=== PATIENT | female | born 1945 | race Hispanic/Latino ===

== ENCOUNTER 2017-10-01 14:04 | Emergency (ER) | payer MEDICARE, OTHER ==
[~2017-10-01] VITALS: Ht 154.9 cm; Wt 58.5 kg
[~2017-10-01 14:04] MED LIST: ASPIR-LOW81 MG PO; BENTYL10 MG PO; DIOVAN160 MG PO; LEVSIN0.125 MG PO; ZETIA10 MG PO
[2017-10-01] MEDS ORDERED: TRAMADOL HCL 50 MG TAB PO ONE (16:00)
--- NOTE | 2017-10-01 20:46 | Diagnostic Imaging Report ---
History:fall Comparison studies:None Technique: Axial images were obtained from the skull base to the vertex. Coronal and sagittal images reconstructed from the axial data. Intravenous contrast: None Findings: Scalp/skull: No abnormalities. Extra-axial spaces: No masses. No fluid collections. Brain sulci: Appropriate for age. Ventricles: Normal in size and configuration. No hydrocephalus. Parenchyma: Scattered hypodensities in the supratentorial white matter are small vessel ischemic changes. No masses, hemorrhage, acute or chronic cortical vascular insults. Sellar/suprasellar region: No abnormalities. Craniocervical junction: Patent foramen magnum. No Chiari one malformation. Incidental findings: Atherosclerotic calcifications in the carotid siphons . Impression: No acute abnormalities. Mild supratentorial white matter microvascular ischemic changes. A preliminary report was given by Neuroradiology fellow Dr. Matos at 5:01 PM on 10/01/2017. I reviewed the images and agree with the findings in the preliminary report. Signed by: Dr. Kirsten Nelson M.D. on 10/01/2017 8:42 PM
--- NOTE | 2017-10-01 20:53 | Diagnostic Imaging Report ---
History: Fall Comparison studies: None Technique: Axial images were obtained through the cervical region.. Coronal and sagittal images reconstructed from the axial data.. Intravenous contrast: None Findings: Airway: Patent. Fractures: None. Soft tissues: No gross abnormalities. Atlantoaxial articulation: Intact. Alignment: Reversal of normal cervical lordosis centered at C4-C5 where there is mild angulated widening of the posterior disc space. There is also mild widening of the C3-C4 disc space. Grade 1 anterolisthesis of C3 on C4 and C4 on C5. Cervicomedullary junction: No abnormalities. The foramen magnum is patent. Vertebrae: No infection or neoplasm. Degenerative changes: Severe calcific hypertrophy of the left ligamenta flava at C4 contributes to moderate canal stenosis. Moderate disc degeneration at C5-C6 with mild canal stenosis due to mild posterior disc osteophyte complex and bulky ligamenta flava calcification. Mild right foraminal stenosis at C3-C4, mild left foraminal stenosis at C4-C5 and C5-C6 due to facet and uncovertebral arthrosis. Right upper lobe irregular 6 mm pulmonary nodule for which nonemergent dedicated CT chest is recommended. IMPRESSION: 1. No acute fracture. Mild angulated widening of the posterior disc space at C4-C5 which is equivocal for an indirect sign of discoligamentous injury versus chronic degenerative change. MRI cervical spine without contrast is suggested. 2. Right upper lobe irregular 6 mm pulmonary nodule for which nonemergent dedicated CT chest is recommended. 3. Ligament, spinal cord and or vascular abnormalities cannot be excluded on the basis of this examination. Findings discussed with Dr. Lopez at 5:29 PM on 10/01/17. A preliminary report was given by neuroradiology fellow Dr. Matos and at 5:30 PM on 10/01/2017. I have reviewed the images and agree with the findings in the preliminary report. Signed by: Dr. Kirsten Nelson M.D. on 10/01/2017 8:49 PM
--- NOTE | 2017-10-01 20:56 | Diagnostic Imaging Report ---
History: Fall Comparison studies: None Technique: Axial images were obtained through the maxillofacial region. Coronal and sagittal images reconstructed from the axial data. Intravenous contrast: None Findings: Soft tissues: Mild right eccentric premandibular soft tissue contusion. Bones: No fractures or bone abnormalities. Orbits: Globes: Intact Extra or intraconal abnormalities: None. Paranasal sinuses: Previous left maxillary sinus antrostomy. Mild mucosal thickening in left maxillary sinus. No air-fluid level. IMPRESSION: 1. No acute fracture or dislocation. 2. Mild right premandibular soft tissue contusion. A preliminary report was given by neuroradiology fellow Dr. Matos and at 5:27 PM on 10/01/2017. I have reviewed the images and agree with the findings in the preliminary report. Signed by: Dr. Kirsten Nelson M.D. on 10/01/2017 8:53 PM
--- NOTE | 2017-10-01 21:19 | Diagnostic Imaging Report ---
History: Trauma, status post fall. Comparison studies: CT cervical spine from earlier the same day. Technique: Sagittal T1, T2 and IR, axial T2, T1 and axial gradient echo Intravenous contrast: None Findings: Alignment: Reversal of normal cervical lordosis centered at C4-C5 and C5-C6. No scoliosis. Unchanged 2 mm grade 1 anterolisthesis at C3-C4 and C4-C5, 2 mm grade 1 retrolisthesis at C5-C6, is likely degenerative as there is no increased T2/STIR signal within the adjacent ligaments. Cervicomedullary junction: No abnormalities. Patent foramen magnum. Soft tissues: Minimal T2/STIR hyperintensity in the interspinous ligament at level C4-C5 (image 6, series 4). Spinal cord: Normal in size and signal from the foramen magnum through T3 Vertebrae: No fractures, infection or neoplasm. Degenerative changes: C2-C3: No abnormalities. C3-C4: Mild right foraminal stenosis due to facet arthrosis. Mild degenerative disc disease. Asymmetric disc bulge towards the right effaces anterior thecal sac without significant canal stenosis. C4-C5: Mild degenerative disc disease. Posterior disc osteophyte complex in combination with thickened and calcified left paramedian aspect of ligamentum flavum results in moderate canal stenosis. Moderate left foraminal stenosis due to facet and uncovertebral arthrosis. C5-C6: Moderate degenerative disc disease with decreased T2 signal, decreased intervertebral disc space, anterior vertebral osteophyte and degenerative endplate changes. Posterior disc osteophyte complex in combination with grade 1 retrolisthesis results in mild canal stenosis. Moderate left foraminal stenosis due to facet and uncovertebral arthrosis. C6-C7: No abnormalities. C7-T1: No abnormalities. IMPRESSION: 1. Acute interspinous ligament strain/injury at level C4-C5. 2. No acute fracture. Grade 1 anterolisthesis at C3-C4, C4-C5 and grade 1 retrolisthesis at C5-C6 is likely degenerative. 3. Cervical spondylosis as detailed above extends from level C3-C4 to C5-C6, particularly results in moderate canal stenosis at C4-C5 and mild canal stenosis at C5-C6. 4. Multilevel foraminal stenosis, particularly mild right at C3-C4, moderate left at C4-C5 and C5-C6. Signed by: Dr. Kirsten Nelson M.D. on 10/01/2017 9:15 PM
[2017-10-01 22:00] VITALS: BP 193/88
== END 2017-10-01 22:06 | disposition home or self-care (01) ==
LOC: ER 14:04
DX: S06.0X0A Concussion without loss of consciousness, initial encounter (principal); W01.0XXA Fall on same level from slipping, tripping and stumbling without subsequent striking against object, initial encounter
CPT/HCPCS: 70450; 70486; 72125; 72141; 99283

== ENCOUNTER 2018-08-20 17:28 | Observation (INO) | payer MEDICARE, OTHER ==
[~2018-08-20] VITALS: Ht 154.9 cm; Wt 58.5 kg
--- OUTSIDE RECORDS SUMMARY | 2018-08-20 17:32 | XMS REPORT ---
Author [facility] Address Unknown Phone Unavailable Care Team Providers Care Commercial Pilot Name Role Phone RBISA GLEASON Unavailable Unavailable Problems This patient has no known problems. Allergies, Adverse Reactions, Alerts This patient has no known allergies or adverse reactions. Medications This patient has no known medications. Results Test Description Test Time Test Comments Text Results Atomic Results Result Comments MRI SPINE CERVICAL WO [place] [address] Patient Name: MADELEINE VILLALTA MR #: [id number] : 1945 Age/Sex: 71/F Req #: [id number] Adm Physician: Ordered by: CHARITO ANAYA SURFACE PLATE INSPECTOR Report #: [id number] Location: ER Room/Bed: Procedure: [id number] MRI/MRI SPINE CERVICAL WO Exam Date: Exam Time: REPORT STATUS: Signed History: Trauma, status post fall. Comparison studies: CT cervical spine from earlier the same day. Technique: Sagittal T1, T2 and IR, axial T2, T1 and axial gradient echo Intravenous contrast: None Findings: Alignment: Reversal of normal cervical lordosis centered at C4-C5 and C5-C6. No scoliosis. Unchanged 2 mm grade 1 anterolisthesis at C3-C4 and C4-C5, 2 mm grade 1 retrolisthesis at C5-C6, is likely degenerative as there is no increased T2/STIR signal within the adjacent ligaments. Cervicomedullary junction: No abnormalities. Patent foramen magnum. Soft tissues: Minimal T2/STIR hyperintensity in the interspinous ligament at level C4-C5 (image 6, series 4). Spinal cord: Normal in size and signal from the foramen magnum through T3 Vertebrae: No fractures, infection or neoplasm. Deg enerative changes: C2-C3: No abnormalities. C3-C4: Mild right foraminal stenosis due to facet arthrosis. Mild degenerative disc disease. Asymmetric disc bulge towards the right effaces anterior thecal sac without significant canal stenosis. C4-C5: Mild degenerative disc disease. Posterior disc osteophyte complex in combination with thickened and calcified left paramedian aspect of ligamentum flavum results in moderate canal stenosis. Moderate left foraminal stenosis due to facet and uncovertebral arthrosis. C5-C6: Moderate degenerative disc disease with decreased T2 signal, decreased intervertebral disc space, anterior vertebral osteophyte and degenerative endplate changes. Posterior disc osteophyte complex in combination with grade 1 retrolisthesis results in mild canal stenosis. Moderate left foraminal stenosis due to facet and uncovertebral arthrosis. C6-C7: No abnormalities. C7-T1: No abnormalities. IMPRESSION: 1. Acute interspinous ligament strain/injury at level C4-C5. 2. No acute fracture. Grade 1 anterolisthesis at C3-C4, C4-C5 and grade 1 retrolisthesis at C5-C6 is likely degenerative. 3. Cervical spondylosis as detailed above extends from level C3-C4 to C5-C6, particularly results in moderate canal stenosis at C4-C5 and mild canal stenosis at C5-C6. 4. Multilevel foraminal stenosis, particularly mild right at C3-C4, moderate left at C4-C5 and C5-C6. Signed by: Dr. Kirsten Nelson M.D. on 10/01/2017 9:15 PM Dictated By: KIRSTEN NELSON MD 14 Transcribed By: SILVIANO on 10/01/172114 COPY TO: CHARITO ANAYA NP CT BRAIN WO [place] [address] Patient Name: MADELEINE VILLALTA MR #: [id number] : 1945 Age/Sex: 71/F Req #: [id number] Adm Physician: Ordered by: CHARITO ANAYA SURFACE PLATE INSPECTOR Report #: [id number] Location: ER Room/Bed: Procedure: [id number] CT/CT BRAIN WO Exam Date: 10/01/17 Exam Time: 1443 REPORT STATUS: Signed History:fall Comparison studies:None Technique: Axial images were obtained from the skull base to the vertex. Coronal and sagittal images reconstructed from the axial data. Intravenous contrast: None Findings: Scalp/skull: No abnormalities. Extra-axial spaces: No masses. No fluid collections. Brain sulci: Appropriate for age. Ventricles: Normal in size and configuration. No hydrocephalus. Parenchyma: Scattered hypodensities in the supratentorial white matter are small vessel ischemic changes. No masses, hemorrhage, acute or chronic cortical vascular insults. Sellar/suprasellar region: No abnormalities. Craniocervical junction: Patent foramen magnum. No Chiari one malformation. Incidental findings: Atherosclerotic calcifications in the carotid siphons . Impression: No acute abnormalities. Mild supratentorial white matter microvascular ischemic changes. A preliminary report was given by Neuroradiology fellow Dr. Matos at 5:01 PM on 10/01/2017. I reviewed the images and agree with the findings in the preliminary report. Signed by: Dr. Kirsten Nelson M.D. on 10/01/2017 8:42 PM Dictated By: KIRSTEN NELSON MD 41 Transcribed By: SILVIANO on 10/01/172041 COPY TO: CHARITO ANAYA SURFACE PLATE INSPECTOR CT CERVICAL SPINE WO [place] [address] Patient Name: MADELEINE VILLALTA MR #: [id number] : 1945 [facility] 71[id number] Req #: [id number] Adm Physician: Ordered by: CHARITO ANAYA SURFACE PLATE INSPECTOR Report #: [id number] Location: ER Room/Bed: Procedure: [id number] CT/CT CERVICAL SPINE WO Exam Date: 10/01/17 Exam Time: 1443 REPORT STATUS: Signed History: Fall Comparison studies: None Technique: Axial images were obtained through the cervical region.. Coronal and sagittal images reconstructed from the axial data.. Intravenous contrast: None Findings: Airway: Patent. Fractures: None. Soft tissues: No gross abnormalities. Atlantoaxial articulation: Intact. Alignment: Reversal of normal cervical lordosis centered at C4-C5 where there is mild angulated widening of the posterior disc space. There is also mild widening of the C3-C4 disc space. Grade 1 anterolisthesis of C3 on C4 and C4 on C5. Cervicomedullary junction: No abnormalities. The foramen magnum is patent. Vertebrae: No infection or neoplasm. Degenerative changes: Severe calcific hypertrophy of the left ligamenta flava at C4 contributes to moderate canal stenosis. Moderate disc degeneration at C5-C6 with mild canal stenosis due to mild posterior disc osteophyte complex and bulky ligamenta flava calcification. Mild right foraminal stenosis at C3-C4, mild left foraminal stenosis at C4-C5 and C5-C6 due to facet and uncovertebral arthrosis. Right upper lobe irregular 6 mm pulmonary nodule for which nonemergent dedicated CT chest is recommended. IMPRESSION: 1. No acute fracture. Mild angulated widening of the posterior disc space at C4-C5 which is equivocal for an indirect sign of discoligamentous injury versus chronic dege nerative change. MRI cervical spine without contrast is suggested. 2. Right upper lobe irregular 6 mm pulmonary nodule for which nonemergent dedicated CT chest is recommended. 3. Ligament, spinal cord and or vascular abnormalities cannot be excluded on the basis of this examination. Findings discussed with Dr. Gleason at 5:29 PM on 10/01/17. A preliminary report was given by neuroradiology fellow Dr. Matos and at 5:30 PM on 10/01/2017. I have reviewed the images and agree with the findings in the preliminary report. Signed by: Dr. Kirsten Nelson M.D. on 10/01/2017 8:49 PM Dictated By: KIRSTEN NELSON MD 48 Transcribed By: SILVIANO on 10/01/172048 COPY TO: CHARITO ANAYA NP CT MAXIO FAC/PARANAS WO [place] [address] Patient Name: MADELEINE VILLALTA MR #: [id number] : 1945 Age/Sex: 71/F Req #: [id number] Adm Physician: Ordered by: CHARITO ANAYA SURFACE PLATE INSPECTOR Report #: [id number] Location: ER Room/Bed: Procedure: [id number] CT/CT MAXIO FAC/PARANAS WO Exam Date: 10/01/17 Exam Time: 1443 REPORT STATUS: Signed History: Fall Comparison studies: None Technique: Axial images were obtained through the maxillofacial region. Coronal and sagittal images reconstructed from the axial data. Intravenous contrast: None Findings: Soft tissues: Mild right eccentric premandibular soft tissue contusion. Bones: No fractures or bone abnormalities. Orbits: Globes: Intact Extra or intraconal abnormalities: None. Paranasal sinuses: Previous left maxillary sinus antrostomy. Mild mucosal thickening in left maxillary sinus. No air-fluid level. IMPRESSION: 1. No acute fracture or dislocation. 2. Mild right premandibular soft tissue contusion. A preliminary report was given by neuroradiology fellow Dr. Matos and at 5:27 PM on 10/01/2017. I have reviewed the images and ag ree with the findings in the preliminary report. Signed by: Dr. Kirsten Nelson M.D. on 10/01/2017 8:53 PM Dictated By: KIRSTEN NELSON MD 52 Transcribed By: SILVIANO on 10/01/172052 COPY TO: CHARITO ANAYA SURFACE PLATE INSPECTOR
--- OUTSIDE RECORDS SUMMARY | 2018-08-20 17:32 | XMS REPORT | Clinical Summary ---
Author Author [facility] Address Unknown Phone Unavailable Care Team Providers Care Profiling Machine Setup Operator Name Role Phone Asked, No Pcp PCP Unavailable Allergies Comments Active Allergy Reactions Severity Noted Date Codeine Several years ago Methylprednisolone Palpitations Low 04/06/2018 Acetate Iodine 08/15/2012 Penicillins 08/15/2012 Sulfasalazine 08/15/2012 Medications End Date Status Medication Sig Dispensed Refills Start Date Active aspirin-calcium carbonate Take 81 mg by 0 81 mg-300 mg calcium(777 mouth. mg) tablet Active irbesartan (AVAPRO) 150 0 MG tablet 8 Active ezetimibe (ZETIA) 10 mg Zetia 10 mg 0 tablet tablet Take 1 tablet every day by oral route. Active biotin 1 mg capsule Take by 0 mouth. 05/04/2018 Discontinued cyclobenzaprine Take 1 tablet 30 tablet 0 (FLEXERIL) 5 mg (5 mg total) 8 tabletIndications: by mouth 3 Primary localized (three) times osteoarthrosis of right a day as lower leg needed for muscle spasms for up to 30 days. 05/06/2018 ibuprofen (ADVIL,MOTRIN) Take 1 tablet 90 tablet 5 800 MG tabletIndications: (800 mg 8 Primary localized total) by osteoarthrosis of right mouth 3 lower leg (three) times a day for 30 days. 05/04/2018 Discontinued ibuprofen (ADVIL,MOTRIN) Take 1 tablet 45 tablet 0 800 MG tablet (800 mg 8 total) by mouth 3 (three) times a day for 30 days. 05/06/2018 cyclobenzaprine Take 1 tablet 30 tablet 0 (FLEXERIL) 5 mg tablet (5 mg total) 8 by mouth 3 (three) times a day as needed for muscle spasms for up to 30 days. Active Problems Problem Noted Date Arthritis of carpometacarpal (CMC) joint of left thumb 05/04/2018 Primary localized osteoarthrosis of right lower leg 04/06/2018 Encounters Care Team Description Date Type Specialty Anjel Jennings MD Arthritis of carpometacarpal (CMC) joint of left thumb (Primary Dx); Primary localized osteoarthrosis of right lower leg 05/04/2018 Office Visit Orthopedic Surgery Fermin Polanco MD Siff, Todd E., MD Primary localized osteoarthrosis of right lower leg (Primary Dx); Chronic pain of right knee 04/06/2018 Office Visit Orthopedic Surgery after 08/19/2017 Social History Date Tobacco Use Types Packs/Day Years Used Never Assessed Sex Assigned at Date Recorded Not on file Industry Job Start Date Occupation Not on file Not on file Not on file Travel End Travel History Travel Start No recent travel history available. Last Filed Vital Signs Not on file Plan of Treatment Health Maintenance Due Date Last Done Comments BREAST CANCER SCREENING 1996 COLON CANCER SCREENING 1996 SHINGLES VACCINES (1 of 1996 2) PNEUMOCOCCAL 12/16/2011 POLYSACCHARIDE VACCINE AGE 65 AND OVER INFLUENZA VACCINE Completed 03/22/2018, 05/21/2016 PNEUMOCOCCAL-13 Completed 03/22/2018 Procedures Comments Procedure Name Priority Date/Time Associated Diagnosis [place] ARTHROCENTESIS Routine 05/04/2018 Arthritis of ASPIR&/INJ SMALL JT/BURSA 9:00 AM CDT carpometacarpal (CMC) W/O US joint of left thumb XR KNEE 4+ VW RIGHT Routine 04/06/2018 Chronic pain of right 9:16 AM CDT knee [place] ARTHROCENTESIS Routine 04/06/2018 Primary localized ASPIR&/INJ MAJOR JT/BURSA 8:50 AM CDT osteoarthrosis of right W/O US lower leg after 08/19/2017 Results * Hand/Upper Extremity Injection/Arthrocentesis (05/04/2018 9:00 AM CDT) Narrative Performed At Anjel Jennings MD 05/04/20189:06 AM Hand/Upper Extremity Injection/Arthrocentesis Date/Time: 05/04/2018 9:04 AM Consent given by: patient Site marked: site marked Timeout: Immediately prior to procedure a time out was called to verify the correct patient, procedure, equipment, administrative support assoc and site/side marked as required Supporting Documentation Indications: therapeutic Procedure Details Condition: osteoarthritis Site: L thumb Preparation: Patient was prepped and draped in the usual sterile fashion Left side: Needle size: 25 G Approach: superior Left thumb medications administered: 0.5 mL lidocaine 10 mg/mL (1 %); 3 mg betamethasone acetate & sodium phosphate 6 mg/mL Patient tolerance: patient tolerated the procedure well with no immediate complications Platelet Rich Plasma Used: no PRP Used Fluoroscopic Needle Guidance Used: no fluoroscopic needle guidance * XR Knee 4+ Vw Right (04/06/2018 9:16 AM CDT) Narrative Performed At [facility], lateral, oblique x-rays are done of the right knee.These x-rays demonstrate moderate to advanced arthritis involving the right knee. Calcification of the menisci is present. Performing Organization Address City/State/[facility] Phone Number [employer] [address] [place] [address] * Large Joint Arthrocentesis (04/06/2018 8:50 AM CDT) Narrative Performed At Anjel Jennings MD 04/06/20189:43 AM Large Joint Arthrocentesis Consent given by: patient Site marked: site marked Timeout: Immediately prior to procedure a time out was called to verify the correct patient, procedure, equipment, administrative support assoc and site/side marked as required Supporting Documentation Indications: pain Procedure Details Preparation: Patient was prepped and draped in the usual sterile fashion Ultrasound guided: no Platelet Rich Plasma Used: no PRP Used Location: knee - R knee Right side: Needle size: 25 G (25 gauge) Approach: anteromedial Right knee medications administered: 1 mL lidocaine 10 mg/mL (1 %); 3 mg betamethasone acetate & sodium phosphate 6 mg/mL Aspirate amount: 0 mL Patient tolerance: patient tolerated the procedure well with no immediate complications after 08/19/2017 Insurance Payer Benefit Subscriber ID Type Phone Address Plan / Group MEDICARE MEDICARE xxxxxxxxxx Medicare [place], [place] PART A AND B [employer] OF xxxxxx-xx [employer] [place] ([place]) [place] [address] Advance Directives Patient has advance care planning documents on file. For more information, ollie thapa contact: Martinez Simpson [phone] [place] [address]
[2018-08-20] MEDS ORDERED: SODIUM CHLORIDE 0.9% 1000ML 1,000 ML IV STA (17:41)
[2018-08-20] MEDS ORDERED: NITROGLYCERIN 2% OINT 1 GM PKT TOP NR (17:45)
[2018-08-20] MEDS ORDERED: NITROGLYCERIN 0.4 MG SUBL SL ONE (17:45)
[2018-08-20] MEDS ORDERED: ASPIRIN 81 MG CHEW TAB PO ONE ×2 (17:45→19:15)
[2018-08-20 18:00] LABS: BASOPHILS % 0.2 % (0.0-1.0); EOSINOPHILS # (AUTO) 0.3 (0.0-0.4); EOSINOPHILS % 3.4 % (0.0-6.0); HEMATOCRIT 33.4 % (34.2-44.1); HEMOGLOBIN 10.9 g/dL (12.0-16.0); LYMPHOCYTES # (AUTO) 3.1 (1.0-3.2); LYMPHOCYTES % 37.6 % (18.0-39.1); MEAN CORPUSCULAR HEMOGLOBIN 32.6 pg (28-32); MEAN CORPUSCULAR HGB CONC 32.6 g/dL (31-35); MONOCYTES # (AUTO) 0.7 (0.2-0.8); MONOCYTES % 8.2 % (4.4-11.3); NEUTROPHILS # (AUTO) 4.2 (2.1-6.9); NEUTROPHILS % 50.4 % (38.7-80.0); PLATELET COUNT 277 x10e3/uL (140-360); RED BLOOD COUNT 3.34 x10e6/uL (3.6-5.1); RED CELL DISTRIBUTION WIDTH 12.5 % (11.7-14.4)
[2018-08-20 18:11] LABS: INR 0.81
[2018-08-20 18:12] LABS: PARTIAL THROMBOPLASTIN TIME 35.8 seconds (23.8-35.5)
[2018-08-20] MEDS ORDERED: AVAPRO150 MG PO (18:17)
[2018-08-20 18:18] LABS: ALANINE AMINOTRANSFERASE 14 IU/L (0-55); ALBUMIN 3.7 g/dL (3.5-5.0); ALKALINE PHOSPHATASE 33 IU/L (40-150); ANION GAP 16.2 mmol/L (8-16); BLOOD UREA NITROGEN 16 mg/dL (7-26); BUN/CREATININE RATIO 21 (6-25); CALCIUM 9.5 mg/dL (8.4-10.2); CARBON DIOXIDE 23 mmol/L (22-29); CHLORIDE 101 mmol/L (98-107); CREATINE KINASE 98 IU/L (29-168); CREATININE, SERUM 0.76 mg/dL (0.57-1.11); EST GLOMERULAR FILTRATION RATE > 60 ML/MIN (60-); GLUCOSE 119 mg/dL (74-118); POTASSIUM 4.2 mmol/L (3.5-5.1); SODIUM 136 mmol/L (136-145)
--- NOTE | 2018-08-20 18:23 | Diagnostic Imaging Report ---
EXAMINATION: CHEST SINGLE (PORTABLE) INDICATION: Chest pain. COMPARISON: None FINDINGS: TUBES and LINES: None. LUNGS: Lungs are not well inflated. Mild patchy opacity at the right lung base, likely atelectasis. There is no evidence of pneumonia or pulmonary edema. PLEURA: No pleural effusion or pneumothorax. HEART AND MEDIASTINUM: The cardiomediastinal silhouette is unremarkable. BONES AND SOFT TISSUES: No acute osseous lesion. Soft tissues are unremarkable. UPPER ABDOMEN: No free air under the diaphragm. IMPRESSION: No acute radiographic abnormality. Signed by: Dr. Mady Russell MD on 08/20/2018 6:20 PM
[2018-08-20] MEDS ORDERED: NITROGLYCERIN 0.4 MG SUBL SL PRN (19:00)
--- OUTSIDE RECORDS SUMMARY | 2018-08-20 19:13 | XMS REPORT | Clinical Summary ---
Author Author [facility] Address Unknown Phone Unavailable Care Team Providers Care Retail Training Manager Name Role Phone Asked, No Pcp PCP [...] Comments Procedure Name Priority Date/Time Associated Diagnosis [place] ARTHROCENTESIS Routine 05/04/2018 Arthritis of ASPIR&/INJ SMALL JT/BURSA 9:00 AM CDT carpometacarpal (CMC) W/O US joint of left thumb XR KNEE 4+ VW RIGHT Routine 04/06/2018 Chronic pain of right 9:16 AM CDT knee [place] ARTHROCENTESIS Routine 04/06/2018 Primary localized ASPIR&/INJ MAJOR [...] to verify the correct patient, procedure, equipment, support analyst and site/side marked as required Supporting Documentation [...] the menisci is present. Performing Organization Address City/State[facility] Phone Number [employer] [address] [place] [address] * Large Joint Arthrocentesis (04/06/2018 8:50 AM CDT) Narrative Performed At Anjel Jennings MD 04/06/20189:43 AM Large Joint Arthrocentesis Consent given by: patient Site marked: site marked Timeout: Immediately prior to procedure a time out was called to verify the correct patient, procedure, equipment, support analyst and site/side marked as required Supporting Documentation [...] OF [employer] OF xxxxxx-xx [employer] [place] ([place]) [place] [address] Advance Directives Patient has advance care planning documents on file. For more information, ollie thapa contact: Martinez Simpson [phone] [place] [address]
[2018-08-20] MEDS ORDERED: MORPHINE SULFATE INJ 4 MG/ML INJ 1ML IV PRN (19:15)
[2018-08-20] MEDS: FAMOTIDINE 20 MG TAB PO SCH (19:15)
[2018-08-20 20:19] VITALS: BP 189/83
[2018-08-20 20:20] VITALS: BP 189/83
[2018-08-21] VITALS (10 sets, daily range): BP systolic 135–194; BP diastolic 69–96
[2018-08-21] MEDS: NITROGLYCERIN 2% OINT 1 GM PKT TOP SCH ×5 (00:30→19:49)
[2018-08-21 02:09] LABS: CREATINE KINASE MB 1.4 ng/mL (0-5.0)
[2018-08-21 04:54] LABS: BASOPHILS % 0.3 % (0.0-1.0); EOSINOPHILS # (AUTO) 0.2 (0.0-0.4); HEMATOCRIT 31.4 % (34.2-44.1); HEMOGLOBIN 10.3 g/dL (12.0-16.0); LYMPHOCYTES # (AUTO) 2.6 (1.0-3.2); LYMPHOCYTES % 37.9 % (18.0-39.1); MEAN CORPUSCULAR HEMOGLOBIN 32.5 pg (28-32); MEAN CORPUSCULAR HGB CONC 32.8 g/dL (31-35); MEAN CORPUSCULAR VOLUME 99.1 fL (81-99); MONOCYTES # (AUTO) 0.6 (0.2-0.8); NEUTROPHILS # (AUTO) 3.5 (2.1-6.9); NEUTROPHILS % 50.5 % (38.7-80.0); PLATELET COUNT 269 x10e3/uL (140-360); RED BLOOD COUNT 3.17 x10e6/uL (3.6-5.1); RED CELL DISTRIBUTION WIDTH 12.5 % (11.7-14.4)
[2018-08-21 05:15] LABS: ANION GAP 13.6 mmol/L (8-16); BLOOD UREA NITROGEN 11 mg/dL (7-26); BUN/CREATININE RATIO 15 (6-25); CALCIUM 9.3 mg/dL (8.4-10.2); CARBON DIOXIDE 25 mmol/L (22-29); CHLORIDE 103 mmol/L (98-107); CHOL/HDL RATIO 2.7 (3.0-3.6); CHOLESTEROL 162 MD/DL (0-199); CREATININE, SERUM 0.75 mg/dL (0.57-1.11); EST GLOMERULAR FILTRATION RATE > 60 ML/MIN (60-); GLUCOSE 96 mg/dL (74-118); HDL CHOLESTEROL 59 MG/DL (40-60); LDL CHOLESTEROL 89 MG/DL (60-130); POTASSIUM 4.6 mmol/L (3.5-5.1); SODIUM 137 mmol/L (136-145); TRIGLYCERIDES 71 MG/DL (0-149)
[2018-08-21] MEDS: FAMOTIDINE 20 MG TAB PO SCH ×2 (08:03→18:04)
[2018-08-21] MEDS: ASPIRIN 81 MG ENTERIC COATED PO SCH (08:05)
[2018-08-21 10:25] LABS: CREATINE KINASE 69 IU/L (29-168)
--- NOTE | 2018-08-21 11:00 | NUR ---
Patient refused nitro ointment, stated " I makes my head hurt." Education provided that normal side effect of nitro. Pt refused at this time due to no chest pain and side effect of headache. Instructed to call if having chest pain or SOB. Will continue to monitor.
--- NOTE | 2018-08-21 12:01 | Consultation ---
DATE OF CONSULTATION REQUESTING PHYSICIAN: Dr. De Leon REASON FOR CONSULT: Chest pain. HISTORY OF PRESENT ILLNESS: Ms. Weiss is a 72-year-old lady with past medical history as listed below, who reportedly started experiencing some chest discomfort and back pain radiating down left arm that started yesterday morning at about 2 a.m. and continued to persist all day long lasting for about 10 to 15 minutes and recurring numerous times. She was asked to come to the emergency room. She denies any shortness of breath or diaphoresis. No abdominal pain, vomiting, or diarrhea. She states she feels better today. REVIEW OF SYSTEMS CONSTITUTIONAL: Has some fatigue and weakness. HEENT: No headache, blurring of vision, seizures, or syncope. CARDIOVASCULAR: Had chest pain. No dyspnea, orthopnea, or PND. RESPIRATORY: No cough, fever, or expectoration. GI: No abdominal pain, vomiting, or diarrhea. : No dysuria, frequency, or incontinence. ALLERGIES: PENICILLIN, SHRIMP, SULFA, CODEINE, IODINE, LEVOFLOXACIN, AND TRIAMCINOLONE. MEDICATIONS: See list. PAST MEDICAL HISTORY 1. History of hypertension. 2. History of hyperlipidemia. 3. History of hiatal hernia. 4. History of diverticulitis. PAST SURGICAL HISTORY History of cataract surgery. History of left hand surgery. SOCIAL HISTORY: Does not smoke or drink. The patient follows up with [facility]. FAMILY HISTORY: Noncontributory. PHYSICAL EXAMINATION GENERAL: Moderately built and nourished lady, alert, oriented, not in any obvious distress. VITALS: Heart rate is 72, blood pressure 135/72, respiratory rate is 14. Temperature is 97.2. HEENT: Atraumatic. NECK: No JVD, bruit, thyromegaly, or lymphadenopathy. CARDIOVASCULAR: First and second heart sounds heard. No murmurs rubs or gallops appreciated. CHEST: Clear to auscultation. ABDOMEN: Soft and nontender. EXTREMITIES: No edema. RADIOGRAPH DATA: Chest x-ray shows no acute abnormality. EKG shows sinus rhythm 75 beats per minute. Normal axis. Normal intervals. Nonspecific ST-T changes. LABORATORY DATA: Sodium 137, potassium 4.6, chloride 103, bicarb is 25, BUN is 11, creatinine 0.7. Glucose 96. Hemoglobin is 10.3, hematocrit 31.4, platelets of 269. White count is 6.8. Troponin 0.001 and 0.013. BNP was 50. IMPRESSION 1. Chest pain. 2. History of hypertension. 3. History of hiatal hernia. 4. History of hyperlipidemia. PLAN 1. Patient's cardiac enzymes are normal. 2. Get echocardiogram to assess LV function and valvular function. 3. Continue with aspirin and statin. 4. Discussed with patient about further cardiac workup including a stress test/heart catheterization. 5. Patient is going to think about it and then opine. 6. Discussed my impression and plan of management with patient. She understands. As always I appreciate and thank you very much for referrals. Job#: [id number] RAZA
[2018-08-21] MEDS ORDERED: HYOSCYAMINE 0.125 MG TAB PO SCH (15:45)
[2018-08-21] MEDS ORDERED: VITAMIN E400 UNIT PO (16:27)
[2018-08-21] MEDS ORDERED: OS-CAL 500+D T1 EACH PO (16:27)
[2018-08-21] MEDS ORDERED: BIOTIN10 MG PO (16:27)
[2018-08-21] MEDS ORDERED: PRESERVISION A1 EACH PO (16:27)
--- NOTE | 2018-08-21 18:01 | NUR ---
Patient requested that nitro ointment be removed, stated " my head hurt so bad and I don't want to wear it." Education reinforced. Paste removed with warm wash cloth and provided ice pack for head. Instructed to call if having chest pain or SOB. Will continue to monitor
[2018-08-21] MEDS: IRBESARTAN 150 MG TAB PO SCH (18:19)
--- NOTE | 2018-08-21 18:50 | History and Physical ---
PRIMARY CARE SYSTEM: Dr. Suresh Betts. HOSPITAL DOCTOR: Dr. Joshua De Leon. HISTORY OF PRESENT ILLNESS: Ms. Weiss is a pleasant 72-year-old female with chest pain. Patient was experiencing some back pain, simultaneous chest pain. It was radiating down the left arm. It started today prior to admission. It continued intermittently throughout the day lasting 10 to 15 minutes at the time. This is the first time she ever had this kind of symptom. She came to the emergency room. Patient states she had a stress test about June 2017, which was okay as she reports by an outside fiber optics engineer. Patient denies any significant shortness of breath associated with this. When she came to the emergency room, the EKG showed nonspecific ST and T wave changes. She was admitted for observation. PAST MEDICAL HISTORY: Hypertension, hyperlipidemia, hiatal hernia, diverticulitis, cataract surgery, left hand surgery. MEDICATIONS: Current medicine list reviewed per electronic record. Aspirin and few cardiac medicines on-board for now. ALLERGIES: LEVOFLOXACIN, CODEINE, TRIAMCINOLONE, PENICILLIN, SHRIMP, SULFA. SOCIAL HISTORY: No smoking, no drinking, no drugs. Patient is and lives with her . FAMILY HISTORY: Noncontributory to this process. REVIEW OF SYSTEMS GENERAL: No weight changes. OPHTHALMOLOGIC: No double vision. ENT: No mouth ulcers. ENDOCRINE: No thyroid disorder known. CARDIAC: No heart attacks. LUNGS: No asthma. GI: There is no chronic constipation. : No bleeding in the urine. DERMATOLOGIC: No rashes. MUSCULOSKELETAL: There is mild arthritis. NEUROLOGIC: No seizures. OBJECTIVE VITAL SIGNS: Afebrile. Vital signs noted per electronic record. GENERAL: In no acute distress, alert and calm in bed. HEENT: Normocephalic, atraumatic. NECK: Supple. Throat midline. LUNGS: Bilateral air entry, clear. CARDIOVASCULAR: S1, S2. No murmurs, rubs, or gallops. ABDOMEN: Soft, nontender. EXTREMITIES: No clubbing, no cyanosis. There is no edema. INTEGUMENT: No rash or purpura. LABS: BUN 11, creatinine 0.8, potassium 4.6. White count 7, hematocrit 31, platelets 269. LFTs reported normal. Chest x-ray was reported clear lungs. IMPRESSION AND PLAN 1. Atypical chest pain. 2. Hypertension. 3. Dyslipidemia. 4. History of hiatal hernia. 5. Chronic intermittent allergies. Finalized cardiac enzymes, which were normal so far. Get echocardiogram. Continue aspirin and statin. Stress test tentatively tomorrow per cardiology. We will appreciate cardiac interventions to be done by Dr. Maldonado, cardiac expert. Thank you very much Dr. Betts for allowing Dr. De Leon and I the chance to participate in the care of Ms. Weiss. Do not hesitate to contact us if we could help in any way. Job#: [id number] CHRIS
[2018-08-21] MEDS ORDERED: ATORVASTATIN 20 MG TAB PO SCH (21:00)
[2018-08-22] MEDS: ONDANSETRON HCL INJ 2MG/ML 2ML 2 MG/ML VIAL IV PRN ×2 (02:15→07:55)
--- NOTE | 2018-08-22 02:16 | NUR ---
Patient states she does not want to do the stress test. Will call Dr. Maldonado in AM to inform.
[2018-08-22 04:00] VITALS: BP 128/82
[2018-08-22] MEDS: NITROGLYCERIN 2% OINT 1 GM PKT TOP SCH (04:25)
--- NOTE | 2018-08-22 06:59 | NUR ---
call out to dr. dupont, patient does not want to do stress test, prefers to do it outpatient.
--- NOTE | 2018-08-22 07:05 | NUR ---
Spoke to michael Mosley with patient doing stress test outpatient.
[2018-08-22 07:32] VITALS: BP 146/68
[2018-08-22 08:20] VITALS: BP 146/68
[2018-08-22] MEDS: FAMOTIDINE 20 MG TAB PO SCH (08:43)
[2018-08-22] MEDS: ASPIRIN 81 MG ENTERIC COATED PO SCH (08:43)
[2018-08-22] MEDS: IRBESARTAN 150 MG TAB PO SCH (08:43)
--- NOTE | 2018-08-22 11:00 | NUR ---
SOCIAL WORK INITIAL ASSESSMENT Eligibility Examiner to bedside to discuss plan of care with patient/family. CM/SW role and care transitions discussed. Anticipated discharge plan discussed along with duration of care. CM/SW discussed patients right to make decisions in care. CM/SW work hours given. Patient lives: IN HOUSE WITH FAMILY Admit/Transfer: VIA ED FROM HOME POA/Emergency contact: DEREK PERDOMO [phone] Current/Previous Home Health: NONE PCP/Follow-up Care: [facility] Current/Previous DME: NONE Other Services: NONE Employment Status: RETIRED Areas of Concerns: NONE Referral Needs: NONE Education Needs: NONE IMM/MIRANDA given and signed (if applicable): UPON ADMISSION Goal for discharge: RETURN HOME CM/SW left business card at the bedside with contact information. Name and number was also written on the patients whiteboard. Patient verbalized understanding of discussion. CM will follow-up with ongoing discharge and transition of care needs.
[2018-08-22 11:14] VITALS: BP 135/73
--- NOTE | 2018-08-22 11:34 | NUR ---
patient discharged home, Dr Singer had rounds, denies any chest pain, no distress, noted, IV canula removed with tip intact, no ss of infiltration noted. [facility]
--- NOTE | 2018-08-23 05:26 | Discharge Summary ---
PRIMARY CARE DOCTOR: Dr. Ruiz, [facility] DOCTOR: Dr. Joshua De Leon PRIMARY DIAGNOSIS: Atypical chest pain, possible but less likely acute coronary syndrome. HOSPITAL COURSE: Ms. Weiss is a pleasant 72-year-old female who presented with simultaneous back pain and chest pain, which radiated down the left arm. She had a stress test in June 2017, which was reported okay by outside registered medical assistant. EKG with nonspecific changes only. Patient had observation and cardiac enzymes came back unremarkable. She was offered further evaluation by Dr. Maldonado of registered medical assistant. Patient was ready for a stress test, but she deferred at the last minute as she was not feeling good. She elected for outpatient followup. MEDICATIONS AT DISCHARGE: Please see discharge medicine list for details. ACTIVITY: Do not overexert. Have cautions if symptoms recur. DIET: Cardiac diet. FOLLOWUP: Should be with Dr. Ruiz. She is expected to go to registered medical assistant as she recently had a heart doctor for her , and expect to go to the same heart doctor. Greater than 30 minutes in discharge planning and coordination. JESSICA KNUTSON MD Job#: [id number] MINI
== END 2018-08-22 11:36 | disposition home or self-care (01) ==
LOC: ER 17:28 → ERHOLD 19:10 → IMCU 19:59
PROVIDERS: ADMIT Internal Medicine; ATTEND Internal Medicine
DX: R07.89 Other chest pain (principal); I10 Essential (primary) hypertension; E78.5 Hyperlipidemia, unspecified; K44.9 Diaphragmatic hernia without obstruction or gangrene; Z88.1 Allergy status to other antibiotic agents; Z88.5 Allergy status to narcotic agent; Z88.0 Allergy status to penicillin; Z91.013 Allergy to seafood; Z88.2 Allergy status to sulfonamides; Z88.8 Allergy status to other drugs, medicaments and biological substances; Z91.048 Other nonmedicinal substance allergy status
CPT/HCPCS: 36415 ×2; 71045; 80048; 80053; 80061; 82550 ×2; 82553 ×2; 83880; 84484 ×2; 85025 ×2; 85610; 85730; 93005 ×2; 93306; 99284; G0378 ×3; J2270; J2405 ×2; J7030

== ENCOUNTER 2021-06-04 10:00 | Observation (INO) | payer MEDICARE ==
[~2021-06-04] VITALS: Ht 154.9 cm; Wt 58.5 kg
[~2021-06-04 10:00] MED LIST changes: +AVAPRO150 MG PO; +BIOTIN10 MG PO; +KEFLEX500 MG; +OS-CAL 500+D T1 EACH PO; +PRESERVISION A1 EACH PO; +VITAMIN E400 UNIT PO
[2021-06-04] MEDS ORDERED: HYDRALAZINE HCL 20 MG/ML VIAL IV ONE (10:30)
[2021-06-04] MEDS ORDERED: NITROGLYCERIN 2% OINT 1 GM PKT TOP ONE (10:30)
[2021-06-04] MEDS ORDERED: ACETAMINOPHEN 325 MG TAB PO ONE (10:30)
[2021-06-04] MEDS ORDERED: ONDANSETRON HCL INJ 2MG/ML 2ML 2 MG/ML VIAL IV PRN (10:30)
[2021-06-04] MEDS ORDERED: HYDRALAZINE HCL 20 MG/ML VIAL ONE (10:52)
[2021-06-04] MEDS ORDERED: ASPIRIN 81 MG CHEW TAB ONE (11:42)
[2021-06-04] MEDS ORDERED: NITROGLYCERIN 2% OINT 1 GM PKT ONE (12:13)
[2021-06-04 13:00] VITALS: BP 157/66
[2021-06-04 13:30] VITALS: BP 157/66
[2021-06-04] MEDS: METOPROLOL TARTRATE 25 MG TAB PO SCH ×2 (15:00→21:11)
[2021-06-04 15:25] VITALS: BP 158/71
[2021-06-04] MEDS ORDERED: DIOVAN80 MG PO (15:33)
[2021-06-04 15:54] LABS: CREATINE KINASE MB 1.6 ng/mL (0-5.0)
[2021-06-04] MEDS: ACETAMINOPHEN 325 MG TAB PO PRN ×2 (16:00→21:24)
[2021-06-04 20:00] VITALS: BP 155/68
[2021-06-04] MEDS ORDERED: PREDNISONE 10 MG TAB PO ONE (21:00)
[2021-06-04 21:01] VITALS: BP 155/68
[2021-06-04 23:16] LABS: CREATINE KINASE MB 0.3 ng/mL (0-5.0)
[2021-06-05] VITALS: BP 146/73
[2021-06-05] MEDS ORDERED: PREDNISONE 10 MG TAB PO ONE ×4 (02:00→09:00)
[2021-06-05 04:00] VITALS: BP 147/68
[2021-06-05] MEDS ORDERED: SODIUM CHLORIDE 0.9% 50ML 50 ML ONE (06:33)
[2021-06-05] MEDS ORDERED: IOPAMIDOL 370 MG/ML 200 ML INFUS..BTL INJ ONE (06:33)
[2021-06-05 06:42] LABS: % IRON SATURATION 17 % (15-50); ALBUMIN 3.1 g/dL (3.5-5.0); ALBUMIN/GLOBULIN RATIO 0.8 (0.8-2.0); ANION GAP 15.2 mmol/L (8-16); CALCIUM 9.1 mg/dL (8.4-10.2); CREATININE, SERUM 0.67 mg/dL (0.57-1.11); IRON 53 ug/dL (50-170); POTASSIUM 4.2 mmol/L (3.5-5.1); TOTAL IRON BINDING CAPACITY 319 ug/dL (261-478); TRANSFERRIN 228 mg/dL (180-382)
[2021-06-05 07:21] LABS: BASOPHILS % 0.2 % (0.0-1.0); HEMATOCRIT 25.4 % (34.2-44.1); HEMOGLOBIN 8.3 g/dL (12.0-16.0); LYMPHOCYTES # (AUTO) 0.8 (1.0-3.2); LYMPHOCYTES % 14.6 % (18.0-39.1); MEAN CORPUSCULAR HGB CONC 32.7 g/dL (31-35); MEAN CORPUSCULAR VOLUME 98.1 fL (81-99); MONOCYTES % 0.8 % (4.4-11.3); NEUTROPHILS # (AUTO) 4.4 (2.1-6.9); NEUTROPHILS % 83.8 % (38.7-80.0); PLATELET COUNT 431 x10e3/uL (140-360); RED BLOOD COUNT 2.59 x10e6/uL (3.6-5.1); RED CELL DISTRIBUTION WIDTH 13.2 % (11.7-14.4)
[2021-06-05 07:27] LABS: CHOL/HDL RATIO 3.4 (3.0-3.6)
[2021-06-05 07:34] LABS: THYROID STIMULATING HORMONE 0.921 uIU/mL (0.350-4.940)
[2021-06-05 07:35] LABS: CREATINE KINASE MB 0.9 ng/mL (0-5.0)
[2021-06-05 08:00] VITALS: BP 158/70
[2021-06-05] MEDS ORDERED: DIPHENHYDRAMINE HCL 25 MG CAP PO ONE ×2 (08:00→09:00)
[2021-06-05] MEDS ORDERED: VALSARTAN 160 MG TAB PO SCH (09:00)
[2021-06-05] MEDS ORDERED: ASPIRIN 81 MG ENTERIC COATED PO SCH (09:00)
[2021-06-05] MEDS: METOPROLOL TARTRATE 25 MG TAB PO SCH (09:09)
[2021-06-05 10:56] VITALS: BP 158/70
[2021-06-05 10:57] VITALS: BP 158/70
[2021-06-05] MEDS: ACETAMINOPHEN 325 MG TAB PO PRN (12:21)
[2021-06-05] MEDS ORDERED: VALSARTAN 80 MG TAB PO SCH (17:00)
[2021-06-06] MEDS ORDERED: OYST-CAL-D 500MG TABLET PO SCH (09:00)
[2021-06-06] MEDS ORDERED: EZETIMIBE 10 MG TAB PO SCH (09:00)
[2021-06-06] MEDS ORDERED: ASPIRIN 81 MG CHEW TAB PO SCH (09:00)
[2021-06-06] MEDS ORDERED: VITAMIN E 400 UNIT CAP PO SCH (09:00)
== END 2021-06-05 14:10 | disposition home or self-care (01) ==
LOC: FSED 10:19 → ERHOLD 10:29 → MED/SURG2 13:05
PROVIDERS: ADMIT Internal Medicine; ATTEND Internal Medicine
DX: I16.0 Hypertensive urgency (principal); R00.2 Palpitations; Z20.822 Contact with and (suspected) exposure to COVID-19; I10 Essential (primary) hypertension; Z82.49 Family history of ischemic heart disease and other diseases of the circulatory system; D64.9 Anemia, unspecified
CPT/HCPCS: 36415 ×2; 71260; 80053 ×2; 80061; 82270; 82550 ×2; 82553 ×2; 83540; 83880; 84443; 84466; 84484 ×2; 85025 ×2; 93005 ×2; 93306; 93970; 99284; G0378 ×2; J0360; J7512 ×2; Q9967; U0002

== ENCOUNTER 2022-04-18 19:25 | Emergency (ER) | payer MEDICARE ==
[~2022-04-18] VITALS: Ht 307.3 cm; Wt 58.5 kg
[~2022-04-18 19:25] MED LIST changes: +DIOVAN80 MG PO
[2022-04-18] MEDS ORDERED: SODIUM CHLORIDE 0.9% 1000ML 1,000 ML IV ONE (19:45)
[2022-04-18 19:58] LABS: BASOPHILS % 0.2 % (0.0-1.0); EOSINOPHILS % 0.1 % (0.0-6.0); HEMATOCRIT 33.4 % (34.2-44.1); HEMOGLOBIN 10.7 g/dL (12.0-16.0); LYMPHOCYTES # (AUTO) 0.9 (1.0-3.2); LYMPHOCYTES % 7.4 % (18.0-39.1); MEAN CORPUSCULAR HEMOGLOBIN 32.5 pg (28-32); MEAN CORPUSCULAR VOLUME 101.5 fL (81-99); MONOCYTES # (AUTO) 1.1 (0.2-0.8); MONOCYTES % 8.9 % (4.4-11.3); NEUTROPHILS # (AUTO) 9.8 (2.1-6.9); NEUTROPHILS % 83.1 % (38.7-80.0); PLATELET COUNT 257 x10e3/uL (140-360); RED BLOOD COUNT 3.29 x10e6/uL (3.6-5.1); RED CELL DISTRIBUTION WIDTH 12.7 % (11.7-14.4)
[2022-04-18] MEDS ORDERED: ACETAMINOPHEN 325 MG TAB PO ONE (20:00)
[2022-04-18 20:20] LABS: ALANINE AMINOTRANSFERASE 22 IU/L (0-55); ALBUMIN 3.9 g/dL (3.5-5.0); ALKALINE PHOSPHATASE 30 IU/L (40-150); BLOOD UREA NITROGEN 12 mg/dL (7-26); BUN/CREATININE RATIO 16 (6-25); CALCIUM 9.3 mg/dL (8.4-10.2); CARBON DIOXIDE 22 mmol/L (22-29); CHLORIDE 99 mmol/L (98-107); CREATINE KINASE 97 IU/L (29-168); CREATININE, SERUM 0.75 mg/dL (0.57-1.11); GLUCOSE 120 mg/dL (74-118); SODIUM 135 mmol/L (136-145)
[2022-04-18 20:30] LABS: CLARITY,URINE HAZY (CLEAR); COLOR,URINE YELLOW (YELLOW); KETONES,URINE NEGATIVE (NEGATIVE); LEUKOCYTE ESTERASE ,URINE TRACE (NEGATIVE); NITRITE,URINE POSITIVE (NEGATIVE); PROTEIN,URINE DIPSTICK 1+ (NEGATIVE); URINE UROBILINOGEN 0.2 mg/dL (0.2 - 1)
[2022-04-18 20:31] LABS: BACTERIA,URINE MANY /HPF; EPITHELIAL CELLS,URINE FEW /LPF; WBC,URINE (MAN) >50 /HPF (0-5)
[2022-04-18 20:32] LABS: HYALINE CASTS 0-1 (0-1); MUCUS,URINE MODERATE (RARE)
[2022-04-18] MEDS ORDERED: CEFDINIR300 MG PO (21:12)
[2022-04-18 21:48] VITALS: BP 152/72
== END 2022-04-18 21:26 | disposition home or self-care (01) ==
LOC: ER 19:29
DX: R50.9 Fever, unspecified (principal); N39.0 Urinary tract infection, site not specified; I10 Essential (primary) hypertension; E78.5 Hyperlipidemia, unspecified; Z20.822 Contact with and (suspected) exposure to COVID-19; Z87.19 Personal history of other diseases of the digestive system; Z96.652 Presence of left artificial knee joint; R94.31 Abnormal electrocardiogram [ECG] [EKG]
CPT/HCPCS: 36415; 71045; 80053; 81001; 82550; 82553; 83605; 84484; 85025; 87040; 87071; 87086; 87186; 87205; 87400; 93005; 99284; J0696; J7030; U0002

== ENCOUNTER → 2022-10-07 | Outpatient (CLI) | payer MEDICARE ==
[~2022-10-07] MED LIST changes: +CEFDINIR300 MG PO; +DIATRIZOATE MEGL/DIATRIZOA SOD 30 ML BTL PO ONE
== END ==
LOC: CT 07:44
PROVIDERS: ATTEND Internal Medicine Gastroenterology
DX: R10.12 Left upper quadrant pain (principal); R10.30 Lower abdominal pain, unspecified; N39.0 Urinary tract infection, site not specified; Z88.8 Allergy status to other drugs, medicaments and biological substances; Z87.19 Personal history of other diseases of the digestive system
CPT/HCPCS: 74176; Q9963

== ENCOUNTER 2023-06-12 10:40 | Emergency (ER) | payer MEDICARE ==
[~2023-06-12] VITALS: Ht 307.3 cm; Wt 58.5 kg
[~2023-06-12 10:40] MED LIST changes: -DIATRIZOATE MEGL/DIATRIZOA SOD 30 ML BTL PO ONE
[2023-06-12] MEDS ORDERED: SODIUM CHLORIDE 0.9% 1000ML 1,000 ML IV STA (11:04)
[2023-06-12 11:18] LABS: BASOPHILS % 0.4 % (0.0-1.0); EOSINOPHILS # (AUTO) 0.2 (0.0-0.4); EOSINOPHILS % 1.9 % (0.0-6.0); HEMATOCRIT 34.3 % (34.2-44.1); HEMOGLOBIN 11.3 g/dL (12.0-16.0); LYMPHOCYTES % 37.3 % (18.0-39.1); MEAN CORPUSCULAR HEMOGLOBIN 32.6 pg (28-32); MEAN CORPUSCULAR HGB CONC 32.9 g/dL (31-35); MEAN CORPUSCULAR VOLUME 98.8 fL (81-99); MONOCYTES # (AUTO) 0.6 (0.2-0.8); NEUTROPHILS # (AUTO) 4.2 (2.1-6.9); NEUTROPHILS % 53.1 % (38.7-80.0); PLATELET COUNT 269 x10e3/uL (140-360); RED BLOOD COUNT 3.47 x10e6/uL (3.6-5.1); RED CELL DISTRIBUTION WIDTH 12.5 % (11.7-14.4); WHITE BLOOD COUNT 7.98 x10e3/uL (4.8-10.8)
[2023-06-12 11:34] LABS: INR 0.87
[2023-06-12 11:35] LABS: PARTIAL THROMBOPLASTIN TIME 34.9 seconds (23.8-35.5)
[2023-06-12 11:39] LABS: ALANINE AMINOTRANSFERASE 11 IU/L (0-55); ALBUMIN/GLOBULIN RATIO 1.2 (0.8-2.0); ALKALINE PHOSPHATASE 28 IU/L (40-150); BILIRUBIN,TOTAL 0.5 mg/dL (0.2-1.2); BLOOD UREA NITROGEN 16 mg/dL (7-26); BUN/CREATININE RATIO 20 (6-25); CALCIUM 9.5 mg/dL (8.4-10.2); CARBON DIOXIDE 25 mmol/L (22-29); CHLORIDE 102 mmol/L (98-107); CREATINE KINASE 92 IU/L (29-168); EST GLOMERULAR FILTRATION RATE 76 ML/MIN (>=60); GLUCOSE 98 mg/dL (74-118); MAGNESIUM 1.9 MG/DL (1.3-2.1); SODIUM 137 mmol/L (136-145); TOTAL PROTEIN 7.3 g/dL (6.5-8.1)
[2023-06-12 11:59] LABS: THYROID STIMULATING HORMONE 2.284 uIU/mL (0.350-4.940)
[2023-06-12 12:04] LABS: TROPONIN I < 0.001 ng/mL (0-0.300)
[2023-06-12 12:13] LABS: BILIRUBIN,URINE NEGATIVE (NEGATIVE); CLARITY,URINE HAZY (CLEAR); COLOR,URINE YELLOW (YELLOW); GLUCOSE, URINE NEGATIVE (NEGATIVE); KETONES,URINE NEGATIVE (NEGATIVE); LEUKOCYTE ESTERASE ,URINE SMALL (NEGATIVE); NITRITE,URINE POSITIVE (NEGATIVE); PH,URINE 7 (5 - 7); PROTEIN,URINE DIPSTICK NEGATIVE (NEGATIVE); URINE UROBILINOGEN 0.2 mg/dL (0.2 - 1)
[2023-06-12 12:16] LABS: BACTERIA,URINE MANY /HPF; EPITHELIAL CELLS,URINE FEW /LPF; RBC,URINE 0-5 /HPF (0-5); WBC,URINE (MAN) >50 /HPF (0-5)
[2023-06-12] MEDS ORDERED: CEFDINIR300 MG PO (13:06)
[2023-06-12 13:24] VITALS: BP 162/73; PULSE 66; RESP 18; O2SAT 97
== END 2023-06-12 13:27 | disposition home or self-care (01) ==
LOC: ER 10:47
DX: R53.1 Weakness (principal); G45.9 Transient cerebral ischemic attack, unspecified; N39.0 Urinary tract infection, site not specified; I10 Essential (primary) hypertension; E78.5 Hyperlipidemia, unspecified; Z87.19 Personal history of other diseases of the digestive system; Z96.652 Presence of left artificial knee joint
CPT/HCPCS: 36415; 70450; 71045; 80053; 81001; 82550; 82948; 83735; 84443; 84484; 85025; 85610; 85730; 87086; 87186; 93005; 99284; J7030; U0002

== ENCOUNTER 2024-03-24 10:13 | Inpatient (IN) | payer MEDICARE ==
[~2024-03-24] VITALS: Ht 154.9 cm; Wt 55.8 kg
[2024-03-24 10:35] VITALS: TEMP 97.2
[2024-03-24] MEDS ORDERED: SODIUM CHLORIDE FLUSH 10 ML SYR IV PRN (10:45)
[2024-03-24 11:00] LABS: BASOPHILS % 0.5 % (0.0-1.0); EOSINOPHILS # (AUTO) 0.2 (0.0-0.4); EOSINOPHILS % 2.3 % (0.0-6.0); HEMATOCRIT 34.6 % (34.2-44.1); HEMOGLOBIN 11.3 g/dL (12.0-16.0); LYMPHOCYTES # (AUTO) 2.5 (1.0-3.2); LYMPHOCYTES % 34.1 % (18.0-39.1); MEAN CORPUSCULAR HEMOGLOBIN 32.9 pg (28-32); MEAN CORPUSCULAR HGB CONC 32.7 g/dL (31-35); MEAN CORPUSCULAR VOLUME 100.9 fL (81-99); MONOCYTES # (AUTO) 0.6 (0.2-0.8); MONOCYTES % 7.6 % (4.4-11.3); NEUTROPHILS % 55.2 % (38.7-80.0); PLATELET COUNT 273 x10e3/uL (140-360); RED BLOOD COUNT 3.43 x10e6/uL (3.6-5.1); RED CELL DISTRIBUTION WIDTH 12.5 % (11.7-14.4); WHITE BLOOD COUNT 7.28 x10e3/uL (4.8-10.8)
[2024-03-24] MEDS: VALSARTAN 80 MG TAB PO STA (11:14)
[2024-03-24] MEDS: ASPIRIN 81 MG CHEW TAB PO ONE ×2 (11:15→14:43)
[2024-03-24 11:29] LABS: ANION GAP 13.8 mmol/L (8-16); BILIRUBIN,TOTAL 0.5 mg/dL (0.2-1.2); CALCIUM 9.6 mg/dL (8.4-10.2); CREATININE, SERUM 0.78 mg/dL (0.57-1.11); POTASSIUM 3.8 mmol/L (3.5-5.1); TOTAL PROTEIN 7.2 g/dL (6.5-8.1)
[2024-03-24 12:39] VITALS: PULSE 62; RESP 18
[2024-03-24 12:55] LABS: TROPONIN I 0.001 ng/mL (0-0.300)
[2024-03-24 12:58] LABS: ALBUMIN 3.7 g/dL (3.5-5.0); ALBUMIN/GLOBULIN RATIO 1.1 (0.8-2.0)
[2024-03-24] MEDS ORDERED: SODIUM CHLORIDE FLUSH 10 ML SYR INJ PRN (13:15)
[2024-03-24] MEDS ORDERED: ONDANSETRON HCL INJ 2MG/ML 2ML 2 MG/ML VIAL IV PRN (13:15)
[2024-03-24] MEDS: Morphine 2mg Syringe 2 MG/ML SYR IV ONE (14:11)
[2024-03-24 14:14] VITALS: BP 182/83; PULSE 72; RESP 17; TEMP 97.6; O2SAT 100
[2024-03-24] MEDS ORDERED: VITAMIN D3250 MCG PO (14:35)
[2024-03-24 15:45] VITALS: BP 182/83; PULSE 72; RESP 17; TEMP 97.6; O2SAT 100
[2024-03-24] MEDS: CLOPIDOGREL BISULFATE 75 MG TAB PO ONE (17:37)
[2024-03-24] MEDS: VALSARTAN 80 MG TAB PO SCH (17:38)
[2024-03-24] MEDS: ENOXAPARIN 30 MG/0.3 ML SYR SC SCH (17:38)
[2024-03-24 20:00] VITALS: BP 174/69; PULSE 65; RESP 17; TEMP 97.8; O2SAT 97
[2024-03-24 21:00] VITALS: BP 174/69; PULSE 65; RESP 17; TEMP 97.8; O2SAT 97
[2024-03-24] MEDS: ATORVASTATIN 20 MG TAB PO SCH (21:05)
[2024-03-24] MEDS: CLONIDINE HCL 0.1 MG TAB PO PRN (21:06)
[2024-03-24 23:55] LABS: TROPONIN I 0.013 ng/mL (0-0.300)
[2024-03-25] VITALS (7 sets, daily range): BP systolic 109–149; BP diastolic 44–66; PULSE 56–70; RESP 16–18; TEMP 97.8–98; O2SAT 97–100
[2024-03-25 05:21] LABS: BASOPHILS % 0.5 % (0.0-1.0); EOSINOPHILS # (AUTO) 0.3 (0.0-0.4); EOSINOPHILS % 3.8 % (0.0-6.0); HEMATOCRIT 37.8 % (34.2-44.1); HEMOGLOBIN 12.2 g/dL (12.0-16.0); LYMPHOCYTES # (AUTO) 2.5 (1.0-3.2); MEAN CORPUSCULAR HEMOGLOBIN 32.7 pg (28-32); MEAN CORPUSCULAR HGB CONC 32.3 g/dL (31-35); MEAN CORPUSCULAR VOLUME 101.3 fL (81-99); MONOCYTES # (AUTO) 0.7 (0.2-0.8); MONOCYTES % 8.7 % (4.4-11.3); NEUTROPHILS # (AUTO) 4.1 (2.1-6.9); NEUTROPHILS % 53.7 % (38.7-80.0); PLATELET COUNT 306 x10e3/uL (140-360); RED BLOOD COUNT 3.73 x10e6/uL (3.6-5.1); RED CELL DISTRIBUTION WIDTH 12.6 % (11.7-14.4)
[2024-03-25 05:47] LABS: ALBUMIN 3.9 g/dL (3.5-5.0); ALBUMIN/GLOBULIN RATIO 1.1 (0.8-2.0); ANION GAP 14.9 mmol/L (8-16); BILIRUBIN,TOTAL 0.4 mg/dL (0.2-1.2); CALCIUM 9.7 mg/dL (8.4-10.2); CREATININE, SERUM 0.82 mg/dL (0.57-1.11); POTASSIUM 3.9 mmol/L (3.5-5.1); TOTAL PROTEIN 7.6 g/dL (6.5-8.1)
[2024-03-25 05:49] LABS: TROPONIN I 0.005 ng/mL (0-0.300)
[2024-03-25] MEDS ORDERED: ASPIRIN 81 MG ENTERIC COATED PO SCH (09:00)
[2024-03-25] MEDS: EZETIMIBE 10 MG TAB PO SCH (09:15)
[2024-03-25] MEDS: METOPROLOL SUCCINATE 25 MG TAB XL PO SCH (09:16)
[2024-03-25] MEDS: CLOPIDOGREL BISULFATE 75 MG TAB PO SCH (09:18)
[2024-03-25] MEDS: VITAMIN E 400 UNIT CAP PO SCH (09:18)
[2024-03-25] MEDS: ASPIRIN 81 MG CHEW TAB PO SCH (09:18)
[2024-03-25] MEDS: OYST-CAL-D 500MG TABLET PO SCH (09:19)
[2024-03-25] MEDS: ACETAMINOPHEN 325 MG TAB PO PRN (14:47)
[2024-03-26] VITALS (8 sets, daily range): BP systolic 138–199; BP diastolic 62–93; PULSE 59–91; RESP 15–18; TEMP 97.3–98.3; O2SAT 97–99
[2024-03-26] MEDS: PREDNISONE 20 MG TAB PO ONE (09:40)
[2024-03-26] MEDS ORDERED: DIPHENHYDRAMINE HCL 25 MG CAP PO PRN (12:00)
[2024-03-26] MEDS: FAMOTIDINE 20 MG TAB PO SCH (13:15)
[2024-03-26] MEDS: SODIUM CHLORIDE 0.9% 1000ML 1,000 ML IV SCH (23:10)
[2024-03-27] VITALS (7 sets, daily range): BP systolic 91–183; BP diastolic 67–85; PULSE 56–81; RESP 16–19; TEMP 97.4–98.4; O2SAT 97–100
[2024-03-27] MEDS: PREDNISONE 20 MG TAB PO ONE ×2 (05:31→06:15)
[2024-03-27 05:59] LABS: BASOPHILS % 0.1 % (0.0-1.0); HEMATOCRIT 35.8 % (34.2-44.1); HEMOGLOBIN 11.7 g/dL (12.0-16.0); LYMPHOCYTES # (AUTO) 2.7 (1.0-3.2); LYMPHOCYTES % 20.8 % (18.0-39.1); MEAN CORPUSCULAR HEMOGLOBIN 32.9 pg (28-32); MEAN CORPUSCULAR HGB CONC 32.7 g/dL (31-35); MEAN CORPUSCULAR VOLUME 100.6 fL (81-99); MONOCYTES # (AUTO) 0.7 (0.2-0.8); MONOCYTES % 5.3 % (4.4-11.3); NEUTROPHILS # (AUTO) 9.5 (2.1-6.9); NEUTROPHILS % 73.3 % (38.7-80.0); PLATELET COUNT 321 x10e3/uL (140-360); RED BLOOD COUNT 3.56 x10e6/uL (3.6-5.1); RED CELL DISTRIBUTION WIDTH 12.3 % (11.7-14.4); WHITE BLOOD COUNT 12.92 x10e3/uL (4.8-10.8)
[2024-03-27 06:13] LABS: INR 0.92; PROTHROMBIN TIME 12.8 seconds (11.9-14.5)
[2024-03-27 06:14] LABS: PARTIAL THROMBOPLASTIN TIME 32.6 seconds (23.8-35.5)
[2024-03-27 06:37] LABS: ANION GAP 14.8 mmol/L (8-16); CREATININE, SERUM 0.79 mg/dL (0.57-1.11); POTASSIUM 3.8 mmol/L (3.5-5.1)
[2024-03-27] MEDS ORDERED: HEPARIN SOD (PORCINE) 1000 UNIT/ML 30ML ONE (08:30)
[2024-03-27] MEDS ORDERED: HEPARIN SOD/SOD CHLORIDE 2,000 ML ONE (08:31)
[2024-03-27] MEDS ORDERED: LIDOCAINE HCL 2% LOCAL 20 ML VIAL ONE (08:31)
[2024-03-27] MEDS ORDERED: NITROGLYCERIN/D5W 200 MCG/ML 250 ML ONE (08:31)
[2024-03-27] MEDS ORDERED: VERAPAMIL HCL 2.5 MG/ML 2 ML VIAL ONE (08:31)
[2024-03-27] MEDS ORDERED: IOPAMIDOL 370 MG/ML 100 ML INFUS..BTL INJ ONE (08:31)
[2024-03-27] MEDS ORDERED: SODIUM CHLORIDE 0.9% 1000ML 1,000 ML ONE (08:31)
[2024-03-27] MEDS ORDERED: FENTANYL CITRATE/PF 100MCG/2 ML INJ ONE (08:44)
[2024-03-27] MEDS ORDERED: MIDAZOLAM HCL 2 MG/2 ML VIAL ONE (08:44)
[2024-03-27] MEDS ORDERED: NITROGLYCERIN 0.4 MG SUBL ONE (09:31)
[2024-03-27] MEDS ORDERED: HYDRALAZINE HCL 20 MG/ML VIAL ONE (09:31)
[2024-03-27] MEDS ORDERED: TOPROL XL25 MG PO (13:25)
[2024-03-27] MEDS ORDERED: ATORVASTATIN CA20 MG PO (13:25)
[2024-03-27] MEDS ORDERED: ASPIRIN EC81 MG PO (13:25)
[2024-03-27] MEDS ORDERED: ISOSORBIDE MONO30 MG PO (13:25)
[2024-03-28] MEDS ORDERED: ISOSORBIDE MONONITRATE 30 MG TAB CR PO SCH (09:00)
== END 2024-03-27 17:50 | disposition home or self-care (01) | DRG 287 ==
LOC: ER 10:23 → ERHOLD 13:13 → MED/SURG3 14:12 → OBSVTOIN 03-26 13:28
PROVIDERS: ADMIT Internal Medicine; ATTEND Internal Medicine
PROC: 4A023N7 Measurement of Cardiac Sampling and Pressure, Left Heart, Percutaneous Approach (ICD-10-PCS; principal; 2024-03-27)
PROC: B2111ZZ Fluoroscopy of Multiple Coronary Arteries using Low Osmolar Contrast (ICD-10-PCS; 2024-03-27)
PROC: B2151ZZ Fluoroscopy of Left Heart using Low Osmolar Contrast (ICD-10-PCS; 2024-03-27)
DX: I25.110 Atherosclerotic heart disease of native coronary artery with unstable angina pectoris (principal); I25.89 Other forms of chronic ischemic heart disease; I10 Essential (primary) hypertension; E78.00 Pure hypercholesterolemia, unspecified; E78.5 Hyperlipidemia, unspecified; M06.9 Rheumatoid arthritis, unspecified; Z79.82 Long term (current) use of aspirin; Z90.49 Acquired absence of other specified parts of digestive tract; Z91.040 Latex allergy status; Z88.0 Allergy status to penicillin; Z88.2 Allergy status to sulfonamides; Z88.5 Allergy status to narcotic agent; Z88.1 Allergy status to other antibiotic agents; Z91.013 Allergy to seafood; Z88.8 Allergy status to other drugs, medicaments and biological substances; Z82.49 Family history of ischemic heart disease and other diseases of the circulatory system
CPT/HCPCS: 36415; 71045; 76937; 80048; 80053; 82550; 83880; 84484; 85025; 85610; 85730; 93005; 93306; 93458; 94760; 99152; 99153; 99252; 99284; C1769; C1887; G0378; J0360; J1644; J1650; J2001; J2250; J7030; J7512; Q9967

== ENCOUNTER → 2024-04-17 | Day surgery (SDC) | payer MEDICARE ==
[2024-04-13 10:37] LABS: BASOPHILS % 0.4 % (0.0-1.0); EOSINOPHILS # (AUTO) 0.3 (0.0-0.4); EOSINOPHILS % 3.4 % (0.0-6.0); HEMATOCRIT 32.9 % (34.2-44.1); HEMOGLOBIN 10.4 g/dL (12.0-16.0); LYMPHOCYTES # (AUTO) 2.8 (1.0-3.2); LYMPHOCYTES % 37.7 % (18.0-39.1); MEAN CORPUSCULAR HGB CONC 31.6 g/dL (31-35); MEAN CORPUSCULAR VOLUME 104.4 fL (81-99); MONOCYTES # (AUTO) 0.5 (0.2-0.8); MONOCYTES % 6.9 % (4.4-11.3); NEUTROPHILS # (AUTO) 3.8 (2.1-6.9); NEUTROPHILS % 51.5 % (38.7-80.0); PLATELET COUNT 297 x10e3/uL (140-360); RED BLOOD COUNT 3.15 x10e6/uL (3.6-5.1); RED CELL DISTRIBUTION WIDTH 12.8 % (11.7-14.4); WHITE BLOOD COUNT 7.41 x10e3/uL (4.8-10.8)
[~2024-04-17] MED LIST changes: +AMLODIPINE BESYL5 MG PO; +ASPIRIN EC81 MG PO; +ATORVASTATIN CA20 MG PO; +CRESTOR40 MG PO; +DIOVAN40 MG PO; +ESMOLOL HCL 100MG/10ML 10 MG/ML VIAL ONE; +ISOSORBIDE MONO30 MG PO; +LIDOCAINE HCL 2% LOCAL INJ 5 ML SDV VIAL INJ ONE; +OMEGA 3 1,0001 EACH PO; +PROPOFOL IV EMULSION 10 MG/ML 20 ML VIAL ONE; +TOPROL XL25 MG PO; +VIT B12 PO; +VITAMIN D3250 MCG PO
[2024-04-17] MEDS: LACTATED RINGER'S 1,000 ML ONE (08:08)
[2024-04-17 12:08] VITALS: TEMP 97.4
[2024-04-17 12:30] VITALS: BP 121/81; PULSE 84; RESP 18; O2SAT 99
== END | disposition home or self-care (01) ==
LOC: OR 07:48
PROVIDERS: ATTEND Internal Medicine Gastroenterology
DX: K29.30 Chronic superficial gastritis without bleeding (principal); K29.40 Chronic atrophic gastritis without bleeding; K31.A11 Gastric intestinal metaplasia without dysplasia, involving the antrum; K31.89 Other diseases of stomach and duodenum; R10.13 Epigastric pain; R10.12 Left upper quadrant pain; R13.10 Dysphagia, unspecified; I10 Essential (primary) hypertension; I25.10 Atherosclerotic heart disease of native coronary artery without angina pectoris; I08.3 Combined rheumatic disorders of mitral, aortic and tricuspid valves; G89.29 Other chronic pain; Z01.812 Encounter for preprocedural laboratory examination; Z86.73 Personal history of transient ischemic attack (TIA), and cerebral infarction without residual deficits; Z87.440 Personal history of urinary (tract) infections; Z79.899 Other long term (current) drug therapy; Z79.82 Long term (current) use of aspirin; Z88.8 Allergy status to other drugs, medicaments and biological substances; Z88.2 Allergy status to sulfonamides; Z88.1 Allergy status to other antibiotic agents; Z88.5 Allergy status to narcotic agent; Z88.0 Allergy status to penicillin; Z91.013 Allergy to seafood
CPT/HCPCS: 36415; 43239; 85025; J2003; J2704; J7121

== ENCOUNTER → 2024-09-05 | Outpatient (REF) | payer MEDICARE ==
[~2024-09-05] MED LIST changes: -ESMOLOL HCL 100MG/10ML 10 MG/ML VIAL ONE; -LIDOCAINE HCL 2% LOCAL INJ 5 ML SDV VIAL INJ ONE; -PROPOFOL IV EMULSION 10 MG/ML 20 ML VIAL ONE
== END ==
LOC: CT 14:13
PROVIDERS: ATTEND Internal Medicine Gastroenterology
DX: R11.2 Nausea with vomiting, unspecified (principal); R10.31 Right lower quadrant pain; M54.9 Dorsalgia, unspecified; K58.9 Irritable bowel syndrome, unspecified; Z68.22 Body mass index [BMI] 22.0-22.9, adult
CPT/HCPCS: 74176